=== PATIENT | female | born 1985 | race Caucasian/White ===

== ENCOUNTER 2017-01-20 15:06 | Emergency (ER) | payer OTHER ==
[~2017-01-20] VITALS: Ht 162.6 cm; Wt 113.4 kg
[~2017-01-20 15:06] MED LIST: ALBU17IN INH; BENA25CA2 PO; CITA40TA4 PO; EPIP0.3I2 INJ; NICO14PA TD; PROP10TA56 PO; TYLE325T5 PO; [UNRECOGNIZED DRUG - REMARK] PO
[2017-01-20] MEDS ORDERED: diphenhydrAMINE INJ 50MG/ML VIAL (J1200) IV STA (16:40)
[2017-01-20] MEDS ORDERED: methylPREDNISolone INJ 125 MG/2 ML VIAL (J2930) IV ONE (16:45)
--- NOTE | 2017-01-20 17:08 | REP ---
Chest x-ray: Two views. History: Dyspnea . Comparison study: No comparison chest x-ray . Findings: The lungs are well inflated and free of infiltrate. The pleural angles are sharp. The heart size is normal. Pulmonary vasculature is not increased. No significant bony abnormality is seen. Impression: Negative chest x-ray. Signed by Donny Doran MD 01/20/2017 04:59 P
[2017-01-20 17:51] LABS: BASO % 0.5 % (0.0-1.0); EOS # 0.2 K/mm3 (0.0-0.50); EOS % 2.2 % (0.0-3.0); LARGE UNSTAINED CELL # 0.2 K/mm3 (0.0-0.4); LARGE UNSTAINED CELL % 2.7 % (0.0-4.0); LYMPH # 3.3 K/mm3 (1.5-4.5); MEAN CORPUSCULAR HEMOGLOBIN 28.8 pg (27.0-33.0); MEAN CORPUSCULAR VOLUME 87.3 fl (80.0-96.0); MONO # 0.4 K/mm3 (0.0-0.8); MONO % 4.6 % (0.0-5.0); NEUTROPHILS # 4.7 K/mm3 (1.8-7.7); NEUTROPHILS % 53.1 % (36.0-66.0); PLATELET COUNT, AUTOMATED 407 k/mm3 (150-450); RED CELL DISTRIBUTION WIDTH 12.6 % (11.5-14.5); WHITE BLOOD COUNT 8.8 K/mm3 (4.0-10.0)
[2017-01-20] MEDS ORDERED: PRED20TA PO (19:22)
[2017-01-20] MEDS ORDERED: ZYRT10TA2 PO (19:22)
[2017-01-20 19:26] VITALS: BP 123/60
== END 2017-01-20 19:30 | disposition home or self-care (01) ==
LOC: M ED 17:22
DX: J30.9 Allergic rhinitis, unspecified (principal)
CPT/HCPCS: 36415; 71020; 85025; 94760; 96374; 96375; 99283; J1200; J2930

== ENCOUNTER 2017-03-18 14:46 | Emergency (ER) | payer OTHER ==
[~2017-03-18] VITALS: Ht 157.5 cm; Wt 113.4 kg
[2017-03-18 14:46] VITALS: BP 117/77
[~2017-03-18 14:46] MED LIST changes: +PRED20TA PO; +ZYRT10TA2 PO
[2017-03-18] MEDS ORDERED: PRED50TA PO (15:33)
[2017-03-18] MEDS ORDERED: CLEO300C2 PO (15:33)
[2017-03-18] MEDS ORDERED: PEPC1TAB4 PO (15:33)
--- NOTE | 2017-03-18 15:39 | ED PDOC ---
Post-Departure Follow-Up ORDER OF "ED URINE PREG" WAS ORDERED ON THIS PT IN ERROR. MEANT FOR ANOTHER PT, ORDER WAS CANCELED BY PROVIDER. HELENA AGRAWAL PA-C March 18, 2017 15:39
== END 2017-03-18 15:46 | disposition home or self-care (01) ==
LOC: M ED 15:13
DX: L03.114 Cellulitis of left upper limb (principal); J45.909 Unspecified asthma, uncomplicated; K58.9 Irritable bowel syndrome, unspecified; M54.9 Dorsalgia, unspecified; F41.9 Anxiety disorder, unspecified; F33.9 Major depressive disorder, recurrent, unspecified; E66.9 Obesity, unspecified; Z88.0 Allergy status to penicillin; Z88.1 Allergy status to other antibiotic agents; Z88.2 Allergy status to sulfonamides; F17.210 Nicotine dependence, cigarettes, uncomplicated

== ENCOUNTER → 2019-02-14 | Outpatient (REF) | payer OTHER ==
[~2019-02-14] MED LIST changes: +CLEO300C2 PO; +PEPC1TAB5 PO; +PRED50TA PO; +ZYRT10CA5 PO; -ZYRT10TA2 PO
[2019-02-14 18:21] LABS: ALBUMIN 3.8 GM/DL (3.2-5.2); ALT/SGPT 25 U/L (12-78); BASO # 0.1 10^3/uL (0.0-0.2); BASO % 0.7 % (0.0-1.0); BILIRUBIN,TOTAL 0.2 MG/DL (0.2-1.0); BLOOD UREA NITROGEN 11 MG/DL (7-18); CALCIUM LEVEL 8.7 MG/DL (8.5-10.1); CARBON DIOXIDE LEVEL 22 MEQ/L (21-32); CHLORIDE LEVEL 108 MEQ/L (98-107); CHOLESTEROL LEVEL 187 MG/DL (<200); CHOLESTEROL RISK RATIO 5.194 (<5); CREATININE FOR GFR 0.65 MG/DL (0.55-1.30); EOS # 0.2 10^3/uL (0.0-0.50); EOS % 2.4 % (0.0-3.0); FREE T4 0.83 NG/DL (0.76-1.46); GLOMERULAR FILTRATION RATE > 60.0 (>60); GLUCOSE, FASTING 120 MG/DL (70-100); HDL CHOLESTEROL 36 MG/DL (>40); HEMATOCRIT 38.3 % (36.0-47.0); HEMOGLOBIN 12.6 g/dl (12.0-15.5); LDL CHOLESTEROL 82 MG/DL (<100); LYMPH # 3.2 10^3/uL (1.5-4.5); MEAN CORPUSCULAR HEMOGLOBIN 28.6 pg (27.0-33.0); MEAN CORPUSCULAR HGB CONC 32.9 g/dl (32.0-36.5); MONO # 0.6 10^3/uL (0.0-0.8); MONO % 6.5 % (0.0-5.0); NEUTROPHILS # 4.9 10^3/uL (1.8-7.7); NEUTROPHILS % 54.1 % (36.0-66.0); NON-HDL-C 151 MG/DL; PLATELET COUNT, AUTOMATED 498 10^3/uL (150-450); POTASSIUM SERUM 4.3 MEQ/L (3.5-5.1); SODIUM LEVEL 137 MEQ/L (136-145); TOTAL PROTEIN 7.2 GM/DL (6.4-8.2); TRIGLYCERIDES LEVEL 346 MG/DL (<150)
[2019-02-14 18:24] LABS: TOTAL 25(OH) VITAMIN D 13.3 NG/ML (30.0-100.0)
[2019-02-14 18:49] LABS: APPEARANCE, URINE HAZY (CLEAR); BACTERIA, URINE AUTO NEGATIVE (NEGATIVE); BILIRUBIN, URINE AUTO NEGATIVE (NEGATIVE); BLOOD, URINE BLOOD 2+ (NEGATIVE); COLOR, URINE YELLOW (YELLOW); GLUCOSE, URINE (UA) AUTO NEGATIVE (NEGATIVE); KETONE, URINE AUTO NEGATIVE (NEGATIVE); LEUKOCYTE ESTERASE, URINE AUTO NEGATIVE (NEGATIVE); MUCUS, URINE SMALL (NEGATIVE); NITRITE, URINE AUTO NEGATIVE (NEGATIVE); PROTEIN, URINE AUTO NEGATIVE (NEGATIVE); RBC, URINE AUTO 1 /HPF (0-3); SQUAMOUS EPITHELIAL CELL UR AU 1 /HPF (0-6); WBC, URINE AUTO 1 /HPF (0-3)
[2019-02-16 14:43] LABS: Lyme Disease IgG/IgM Antibodie <0.91 ISR (0.00-0.90); Lyme Disease IgM Ab Quantitati <0.80 index (0.00-0.79)
== END ==
LOC: M LAB REF 16:36
PROVIDERS: ATTEND Anesthesiology
DX: Z13.228 Encounter for screening for other metabolic disorders (principal)

== ENCOUNTER → 2019-12-19 | Outpatient (REF) | payer OTHER, MEDICAID ==
[2019-12-19 13:30] LABS: BASO % 0.4 % (0.0-1.0); EOS # 0.1 10^3/uL (0.0-0.5); EOS % 1.2 % (0.0-3.0); HEMATOCRIT 40.2 % (36.0-47.0); HEMOGLOBIN 12.8 g/dl (12.0-15.5); LYMPH # 2.7 10^3/uL (1.5-5.0); LYMPH % 28.6 % (24.0-44.0); MEAN CORPUSCULAR HEMOGLOBIN 27.6 pg (27.0-33.0); MEAN CORPUSCULAR HGB CONC 31.8 g/dl (32.0-36.5); MEAN CORPUSCULAR VOLUME 86.8 fl (80.0-96.0); MONO # 0.6 10^3/uL (0.0-0.8); MONO % 6.6 % (0.0-5.0); NEUTROPHILS % 62.7 % (36.0-66.0); PLATELET COUNT, AUTOMATED 472 10^3/uL (150-450); RED BLOOD COUNT 4.63 10^6/uL (4.00-5.40); WHITE BLOOD COUNT 9.6 10^3/uL (4.0-10.0)
[2019-12-19 13:46] LABS: HEMOGLOBIN A1c 7.4 %
[2019-12-19 13:47] LABS: ALT/SGPT 22 U/L (12-78); BILIRUBIN,TOTAL 0.2 MG/DL (0.2-1.0); BLOOD UREA NITROGEN 12 MG/DL (7-18); CARBON DIOXIDE LEVEL 22 MEQ/L (21-32); CHLORIDE LEVEL 102 MEQ/L (98-107); CHOLESTEROL LEVEL 189 MG/DL (<200); CHOLESTEROL RISK RATIO 5.906 (<5); FREE T4 1.04 NG/DL (0.76-1.46); GLOMERULAR FILTRATION RATE > 60.0 (>60); GLUCOSE, FASTING 140 MG/DL (70-100); HDL CHOLESTEROL 32 MG/DL (>40); LDL CHOLESTEROL 112 MG/DL (<100); NON-HDL-C 157 MG/DL; POTASSIUM SERUM 4.2 MEQ/L (3.5-5.1); SODIUM LEVEL 135 MEQ/L (136-145); TOTAL 25(OH) VITAMIN D 12.3 NG/ML (30.0-100.0); TOTAL PROTEIN 7.5 GM/DL (6.4-8.2); TRIGLYCERIDES LEVEL 227 MG/DL (<150)
== END ==
LOC: M LAB REF 12:21
PROVIDERS: ATTEND Physician Assistant
DX: R09.81 Nasal congestion (principal); R42 Dizziness and giddiness; E11.9 Type 2 diabetes mellitus without complications; F31.9 Bipolar disorder, unspecified; L50.0 Allergic urticaria; E78.5 Hyperlipidemia, unspecified

== ENCOUNTER 2020-02-23 12:04 | Emergency (ER) | payer MEDICAID, OTHER ==
[~2020-02-23] VITALS: Ht 162.6 cm; Wt 128.7 kg
[2020-02-23] MEDS ORDERED: METF10004 OR (12:24)
[2020-02-23] MEDS ORDERED: VITA50005 OR (12:24)
[2020-02-23] MEDS ORDERED: methylPREDNISolone INJ 125 MG/2 ML VIAL (J2930) IV ONE (12:30)
[2020-02-23] MEDS ORDERED: diphenhydrAMINE 50MG/ML VIAL (J1200) IV ONE (12:30)
[2020-02-23] MEDS ORDERED: NS 1,000 ML IV ONE (12:30)
[2020-02-23] MEDS ORDERED: FAMOTIDINE INJ 20MG/2ML VIAL (S0028 PER 1) IVP ONE (12:30)
[2020-02-23 14:21] VITALS: BP 121/73
[2020-02-23] MEDS ORDERED: CLOB0.0512 TOP ×2 (14:21→14:33)
[2020-02-23] MEDS ORDERED: TRIA1OI TOP ×2 (14:21→14:33)
== END 2020-02-23 14:48 | disposition home or self-care (01) ==
LOC: M ED 12:04
DX: T78.40XA Allergy, unspecified, initial encounter (principal); E11.9 Type 2 diabetes mellitus without complications; J45.909 Unspecified asthma, uncomplicated; F17.200 Nicotine dependence, unspecified, uncomplicated; Z79.84 Long term (current) use of oral hypoglycemic drugs; Z90.49 Acquired absence of other specified parts of digestive tract; Z88.0 Allergy status to penicillin; Z88.2 Allergy status to sulfonamides; Z88.1 Allergy status to other antibiotic agents
CPT/HCPCS: 96361; 96374; 96375; 99284; J1200; J2930

== ENCOUNTER → 2020-03-10 | Outpatient (REF) | payer OTHER, MEDICAID ==
[~2020-03-10] MED LIST changes: +CLOB0.0512 TOP; +METF10004 OR; +TRIA1OI TOP; +VITA50005 OR
[2020-03-10 17:15] LABS: BASO # 0.1 10^3/uL (0.0-0.2); BASO % 0.7 % (0.0-1.0); EOS # 0.3 10^3/uL (0.0-0.5); EOS % 2.9 % (0.0-3.0); HEMATOCRIT 40.4 % (36.0-47.0); HEMOGLOBIN 13.1 g/dl (12.0-15.5); LYMPH % 29.3 % (24.0-44.0); MEAN CORPUSCULAR HEMOGLOBIN 28.4 pg (27.0-33.0); MEAN CORPUSCULAR HGB CONC 32.4 g/dl (32.0-36.5); MEAN CORPUSCULAR VOLUME 87.4 fl (80.0-96.0); MONO # 0.6 10^3/uL (0.0-0.8); MONO % 6.1 % (0.0-5.0); NEUTROPHILS # 6.3 10^3/uL (1.5-8.5); NEUTROPHILS % 60.4 % (36.0-66.0); PLATELET COUNT, AUTOMATED 537 10^3/uL (150-450); RED BLOOD COUNT 4.62 10^6/uL (4.00-5.40); WHITE BLOOD COUNT 10.4 10^3/uL (4.0-10.0)
[2020-03-10 17:19] LABS: ALBUMIN 3.6 GM/DL (3.2-5.2); ALT/SGPT 25 U/L (12-78); BILIRUBIN,TOTAL 0.2 MG/DL (0.2-1.0); BLOOD UREA NITROGEN 13 MG/DL (7-18); CARBON DIOXIDE LEVEL 25 MEQ/L (21-32); CHLORIDE LEVEL 106 MEQ/L (98-107); CHOLESTEROL LEVEL 174 MG/DL (<200); CHOLESTEROL RISK RATIO 5.117 (<5); GLOMERULAR FILTRATION RATE > 60.0 (>60); GLUCOSE, FASTING 155 MG/DL (70-100); HDL CHOLESTEROL 34 MG/DL (>40); LDL CHOLESTEROL 77 MG/DL (<100); NON-HDL-C 140 MG/DL; POTASSIUM SERUM 4.5 MEQ/L (3.5-5.1); SODIUM LEVEL 139 MEQ/L (136-145); TOTAL PROTEIN 6.8 GM/DL (6.4-8.2); TRIGLYCERIDES LEVEL 314 MG/DL (<150)
[2020-03-10 17:25] LABS: TOTAL 25(OH) VITAMIN D 27.5 NG/ML (30.0-100.0)
== END ==
LOC: M LAB REF 16:14
PROVIDERS: ATTEND Physician Assistant
DX: E78.00 Pure hypercholesterolemia, unspecified (principal); R51 Headache; E11.9 Type 2 diabetes mellitus without complications; E55.9 Vitamin D deficiency, unspecified

== ENCOUNTER → 2020-08-26 | Outpatient (CLI) | payer OTHER ==
[2020-08-26 11:47] LABS: HEMOGLOBIN A1c 6.7 %
[2020-08-26 11:59] LABS: BLOOD UREA NITROGEN 12 MG/DL (7-18); CALCIUM LEVEL 9.3 MG/DL (8.5-10.1); CARBON DIOXIDE LEVEL 21 MEQ/L (21-32); CHLORIDE LEVEL 109 MEQ/L (98-107); CREATININE FOR GFR 0.65 MG/DL (0.55-1.30); GLOMERULAR FILTRATION RATE > 60.0 (>60); GLUCOSE, FASTING 104 MG/DL (70-100); POTASSIUM SERUM 4.3 MEQ/L (3.5-5.1); SODIUM LEVEL 138 MEQ/L (136-145)
[2020-08-26 12:00] LABS: ALBUMIN 3.7 GM/DL (3.2-5.2); ALT/SGPT 27 U/L (12-78); BILIRUBIN,TOTAL 0.3 MG/DL (0.2-1.0); TOTAL PROTEIN 7.5 GM/DL (6.4-8.2)
[2020-08-26 17:37] LABS: MALB URINE SIEMENS 20.7 MG/L; MAU/CREAT RATIO 10.1 MCG/MG (0.0-30.0)
== END ==
LOC: M LAB 10:00
PROVIDERS: ATTEND Physician Assistant
DX: E11.9 Type 2 diabetes mellitus without complications (principal); F31.9 Bipolar disorder, unspecified; E66.01 Morbid (severe) obesity due to excess calories; Z68.42 Body mass index [BMI] 45.0-49.9, adult